=== PATIENT | female | born 1990 | race Caucasian/White ===

== ENCOUNTER 2018-07-13 06:43 | Inpatient (IN) | payer BC ==
[2018-07-13] MEDS ORDERED: TERBUTALINE 1 MG/ML VIAL SQ PRN (07:00)
[2018-07-13] MEDS ORDERED: LIDOCAINE 1% (PF) 10 MG/ML (30 ML SDV) SQ PRN (07:00)
[2018-07-13] MEDS ORDERED: OXYTOCIN 10 UNIT/ML 1 ML VIAL IM PRN (07:00)
[2018-07-13] MEDS ORDERED: CARBOPROST TROMETHAMINE 250 MCG/ML 1 ML AMP IM PRN (07:00)
[2018-07-13] MEDS ORDERED: METHYLERGONOVINE 0.2 MG/ML 1 ML AMP IM PRN (07:00)
[2018-07-13] MEDS: LACTATED RINGERS 1,000 ML IV SCH ×3 (07:05→15:08)
[2018-07-13] MEDS: OXYTOCIN 20 UNITS/1000 ML NS 1,000 ML IV SCH (07:13)
[2018-07-13 07:20] LABS: Basophils # (A) 0.1 k/uL (0-0.2); Basophils % (A) 0 %; Eosinophils # (A) 0.1 k/uL (0-0.7); Eosinophils % (A) 1 %; HGB 11.9 gm/dL (11.4-16.0); Lymphocytes % (A) 19 %; MCH 28.5 pg (25.0-35.0); MCHC 32.3 g/dL (31.0-37.0); MCV 88.1 fL (80.0-100.0); Mean Platelet Volume 6.3; Monocytes # (A) 0.6 k/uL (0-1.0); Monocytes % (A) 6 %; Neutrophils # (A) 7.8 k/uL (1.3-7.7); Neutrophils % (A) 73 %; Platelet Count 292 k/uL (150-450); RDW 15.3 % (11.5-15.5); WBC 10.8 k/uL (3.8-10.6)
[2018-07-13 07:25] VITALS: BMI 41.5
[2018-07-13] MEDS ORDERED: BUTORPHANOL 1 MG/ML 1 ML VIAL IV PRN (08:58)
--- NOTE | 2018-07-13 12:59 | P.HPOB ---
History of Present Illness H&P Date: 07/13/18 Chief Complaint: 39-2/7 weeks, oligohydramnios, induction The patient is a 27-year-old 1 para 0 admitted at 39 and 2/7 weeks as established by seven-week ultrasound. She is admitted with a diagnosis of oligohydramnios and an amniotic fluid index under 5 cm total. Her has otherwise been entirely uncomplicated. She has a history of a cardiac arrhythmia with seizures in the distant past but is not on any current medications and has had no problems during the . On admission, all signs reassuring. Group B strep status is negative. Obstetrical history: 1 para 0 with current statistics listed above. EDC of 07/18/2018 was established by seven-week ultrasound. Laboratory workup demonstrates a blood type of O+ with a negative antibody screen. Rubella status is nonimmune. Remainder of laboratory workup was within normal limits. Early Glucola as well as second trimester Glucola were within normal limits. Group B strep status is negative. Gynecologic history: Unremarkable with no history of any infections to include STDs. Review of Systems Review of systems is confined to history of present illness. Past Medical History Additional Past Medical History / Comment(s): PCOS History of Any Multi-Drug Resistant Organisms: None Reported Past Surgical History: Orthopedic Surgery Past Anesthesia/Blood Transfusion Reactions: No Reported Reaction Past Psychological History: No Psychological Hx Reported Smoking Status: Former smoker Past Alcohol Use History: None Reported Past Drug Use History: None Reported - Past Family History Mother Family Medical History: No Reported History Medications and Allergies Home Medications Medication Instructions Recorded Confirmed Type Pnv No.95/Ferrous Fum/Folic AC 1 each PO DAILY 07/13/18 07/13/18 History [ Multivitamin Tablet] Allergies Allergy/AdvReac Type Severity Reaction Status Date / Time No Known Allergies Allergy Verified 07/13/18 06:58 Exam Vital Signs Temp Pulse Resp BP Pulse Ox 07/13/18 07:17 97.4 F L 90 16 120/70 97 Intake and Output 07/12/18 07/13/18 07/13/18 22:59 06:59 14:59 Other: Weight 99.79 kg 99.79 kg In general, this is a well-developed, well-nourished white female in no acute distress. Her heart has a regular rhythm and rate without murmur. Her lungs are clear to auscultation bilaterally in all hawley. Her abdomen is gravid, nondistended, has normal active bowel sounds, is soft, nontender, and without any palpable masses aside from uterine fundus. Her extremities are without any cyanosis, clubbing, or significant edema and are nontender to palpation bilaterally. Digital cervical examination done and states her cervix to be 2+ centimeters dilated, 60% effaced, the vertex in presentation at -2 station. Artificial rupture of membranes is carried out demonstrating a minimal amount of clear fluid. Results Result Diagrams: 07/13/18 07:00 Abnormal Lab Results - Last 24 Hours (Table) 07/13/18 Range/Units 07:00 WBC 10.8 H (3.8-10.6) k/uL Neutrophils # 7.8 H (1.3-7.7) k/uL Assessment and Plan (1) Term Current Visit: Yes Status: Acute Code(s): Z34.80 - ENCOUNTER FOR SUPRVSN OF NORMAL , UNSP TRIMESTER SNOMED Code(s): 62813525 (2) Oligohydramnios Current Visit: Yes Status: Acute Code(s): O41.00X0 - OLIGOHYDRAMNIOS, UNSP TRIMESTER, NOT APPLICABLE OR UNSP SNOMED Code(s): 24254219 (3) Rubella non-immune status, antepartum Current Visit: Yes Status: Acute Code(s): O99.89 - OTH DISEASES AND CONDITIONS COMPL PREG/CHLDBRTH; Z28.3 - UNDERIMMUNIZATION STATUS SNOMED Code(s ): 506220189 Plan: Patient is admitted for induction of labor secondary to oligohydramnios. Pitocin augmentation has been started and artificial rupture of membranes carried out. She will have close maternal and surveillance and expectant management will be practiced. She is a good candidate for either IV or epidural analgesia, whichever she may choose.
[2018-07-13] MEDS ORDERED: ROPIVACAINE 100 MG, fentaNYL (PF) 200 MCG in SODIUM CHLORIDE 0.9% 76 ML EPIDURAL ONE (13:34)
[2018-07-13] MEDS ORDERED: ceFAZolin IN SWFI 2 GM/20 ML SYRINGE IVP ONE (18:39)
[2018-07-13] MEDS ORDERED: CITRIC ACID-SODIUM CITRATE 15 ML CUP PO ONE (18:39)
[2018-07-13] MEDS ORDERED: ONDANSETRON 4 MG/2 ML VIAL ONE (18:52)
[2018-07-13] MEDS ORDERED: OXYTOCIN 10 UNIT/ML 1 ML VIAL ONE (18:52)
[2018-07-13] MEDS ORDERED: KETOROLAC 30 MG/ML 1 ML VIAL ONE (18:52)
[2018-07-13] MEDS ORDERED: MORPHINE SULFATE (PF) 0.3 MG/0.3 ML SYR ONE (18:52)
[2018-07-13] MEDS ORDERED: ONDANSETRON 4 MG/2 ML VIAL IVP PRN (19:42)
[2018-07-13] MEDS ORDERED: SIMETHICONE 80 MG CHEWABLE PO PRN (19:42)
[2018-07-13] MEDS ORDERED: LANOLIN CREAM 5 GM TUBE TOPICAL PRN (19:42)
[2018-07-13] MEDS ORDERED: diphenhydrAMINE 50 MG/ML 1 ML VIAL IVP PRN ×2 (19:42)
[2018-07-13] MEDS ORDERED: diphenhydrAMINE 50 MG CAP PO PRN (19:42)
[2018-07-13] MEDS ORDERED: diphenhydrAMINE 25 MG CAP PO PRN (19:42)
[2018-07-13] MEDS ORDERED: NALOXONE 0.4 MG/ML 1 ML VIAL IV PRN (19:42)
[2018-07-13] MEDS ORDERED: HYDROcodone/APAP 7.5-325MG 1 EACH TAB PO PRN (19:42)
[2018-07-13] MEDS ORDERED: ZOLPIDEM 5 MG TAB PO PRN (19:42)
[2018-07-13] MEDS ORDERED: HYDROcodone/APAP 5-325MG 1 EACH TAB PO PRN (19:42)
[2018-07-13] MEDS ORDERED: METOCLOPRAMIDE 5 MG/ML 2 ML VIAL IVP PRN (19:42)
[2018-07-13] MEDS ORDERED: OXYTOCIN 20 UNITS/1000 ML NS 1,000 ML IV SCH (19:45)
--- NOTE | 2018-07-13 19:51 | P.OP ---
Date of Procedure: 07/13/18 Preoperative Diagnosis: 1. 39+ weeks intrauterine , oligohydramnios, induction #2. Arrest of dilation and descent #3. intolerance of labor remote from delivery Postoperative Diagnosis: Same Procedure(s) Performed: Primary low-transverse section Anesthesia: epidural Surgeon: Luis Ibrahim Search Lead #1: Oren Lopez Estimated Blood Loss (ml): 700 IV fluids (ml): 1,300 Urine output (ml): 200 Pathology: none sent Condition: stable Disposition: floor Operative Findings: Preoperatively, the patient had been admitted and induced for oligohydramnios. She made progress to approximately 4-5 cm and remained at that dilation for a number of hours. She additionally began to have repetitive deep and long decelerations leading to halting all Pitocin. Given both findings in the suspected finding of malposition, the decision was made to proceed to the operating room. She was delivered of a viable 7 lbs. 14 oz. baby boy with Apgars of 8 at 1 minute and 9 at 5 minutes delivered in the right occiput transverse position. The placenta was delivered manually, intact, and grossly normal with a grossly normal three-vessel cord. The uterus, tubes, and ovaries were entirely normal to inspection. Description of Procedure: The patient was prepped and draped in usual fashion after epidural anesthesia had been bolused by the anesthesiologist. A Pfannenstiel incision was made and extended into the abdominal cavity without difficulty. An Aniceto self- retaining wound retractor was placed. The bladder peritoneum was elevated, and incised, and reflected distally. A 2 cm incision was made in the transverse plane of the lower uterine segment to enter the uterus at which time clear fluid was again noted. The head was found deep in the pelvis and delivered up and through the incision as noted above. The nose and mouth were thoroughly suctioned. The remainder of the infant was delivered onto the field where the cord was doubly clamped, cut, and the infant passed resuscitative measures with weight and Apgars as noted above. A segment of cord was doubly clamped, cut, and set aside should cord gases become necessary. The placenta was delivered manually and intact as noted above. The uterus was exteriorized and the interior cavity of the uterus swept of any remaining placental or membranous fragments. The margins of the incision were grasped with Mcnulty clamps and the incision closed in 2 layers. The first layer was a running locking stitch of 0 chromic catgut from margin to margin followed by a running imbricating stitch of 0 chromic catgut from margin to margin. Hemostasis appeared to be excellent. The posterior cul-de-sac was suctioned with a guard. The uterus was replaced within the abdominal cavity and the gutters swept of any remaining blood, fluid, or clot. The incision was reexamined and found to be hemostatic. The Aniceto wound retractor was removed and the parietal peritoneum was loosely reapproximated. The layer of muscles examined and made hemostatic with the Bovie. The fascia was closed with 2 running stitches of 0 Vicryl proceeding from the lateral margins to the midpoint. The subcutaneous tissues were irrigated, made hemostatic with the Bovie, and reapproximated with a running stitch of 30 plain catgut. The skin was reapproximated with a running subcuticular stitch of 4-0 Vicryl from margin to margin. This was followed by half-inch Steri-Strips placed with Mastisol. Estimated blood loss for the entire case was approximate 700 mL. There were no complications. All sponge, instrument, and needle counts were correct. The patient tolerated the procedure well and proceeded to the recovery room in stable condition. Both mother and infant are resting comfortably in recovery.
[2018-07-13] MEDS: SENNOSIDES-DOCUSATE SODIUM 1 EACH TAB PO SCH (20:05)
[2018-07-14] MEDS: KETOROLAC 30 MG/ML 1 ML VIAL IVP PRN ×2 (03:45→10:00)
[2018-07-14] MEDS: LACTATED RINGERS 1,000 ML IV SCH ×2 (03:50→20:39)
[2018-07-14] MEDS: SENNOSIDES-DOCUSATE SODIUM 1 EACH TAB PO SCH ×2 (07:38→20:39)
[2018-07-14 07:46] LABS: Basophils % (A) 0 %; Eosinophils # (A) 0.1 k/uL (0-0.7); Eosinophils % (A) 1 %; HCT 30.5 % (34.0-46.0); Lymphocytes # (A) 1.6 k/uL (1.0-4.8); Lymphocytes % (A) 12 %; MCH 28.6 pg (25.0-35.0); MCHC 32.3 g/dL (31.0-37.0); MCV 88.5 fL (80.0-100.0); Mean Platelet Volume 6.5; Monocytes # (A) 0.8 k/uL (0-1.0); Monocytes % (A) 6 %; Neutrophils # (A) 11.1 k/uL (1.3-7.7); Neutrophils % (A) 81 %; Platelet Count 254 k/uL (150-450); RBC 3.45 m/uL (3.80-5.40); RDW 15.3 % (11.5-15.5); WBC 13.8 k/uL (3.8-10.6)
--- NOTE | 2018-07-14 07:49 | P.PN ---
Subjective Progress Note Date: 07/14/18 Slept well. Minimal pain. No complaints. Objective - Vital Signs Vital signs: Vital Signs Temp 98.9 F 07/14/18 04:00 Pulse 89 07/14/18 04:00 Resp 16 07/14/18 04:00 BP 117/59 07/14/18 04:00 Pulse Ox 97 07/14/18 04:00 Intake & Output 07/13/18 07/14/18 07/14/18 18:59 06:59 18:59 Intake Total 1000 2300 Output Total 1200 Balance 1000 1100 Weight 99.79 kg Intake: IV 1000 1300 Lactated Ringers 1,000 ml 1000 @ 125 mls/hr IV .Q8H JAZMIN Rx#:[id number] Intake, IV Titration 1000 Amount Oxytocin 20 Units/1000 ml 1000 Ns 1,000 ml @ Per Protocol IV .Q0M JAZMIN Rx#: [id number] Output: Urine 500 Estimated Blood Loss 700 Other: Voiding Method Indwelling Catheter # Voids 0 - Constitutional General appearance: Present: average body habitus, cooperative - EENT Eyes: Present: PERRLA ENT: Present: hearing grossly normal - Neck Neck: Present: normal ROM Thyroid: bilateral: normal size - Respiratory Respiratory: bilateral: CTA - Cardiovascular Rhythm: regular - Gastrointestinal General gastrointestinal: Present: normal bowel sounds - Integumentary Integumentary Comment(s): Incision clean and dry, intact. Steri-Strips applied. Minimal serous drainage. Well approximated Integumentary: Present: normal - Neurologic Neurologic: Present: CNII-XII intact - Musculoskeletal Musculoskeletal: Present: gait normal, strength equal bilaterally - Psychiatric Psychiatric: Present: A&O x's 3, appropriate affect, intact judgment & insight - Labs CBC & Chem 7: 07/13/18 07:00 Assessment and Plan Assessment: Doing well postoperative day #1 Plan: Advance diet and activity. Likely discharge home tomorrow. Time with Patient: Less than 30
[2018-07-14 07:55] LABS: HGB 9.9 gm/dL (11.4-16.0)
[2018-07-14] MEDS: IBUPROFEN 600 MG TAB PO PRN (16:11)
[2018-07-14] MEDS: ACETAMINOPHEN TAB 325 MG TAB PO PRN (19:25)
[2018-07-14] MEDS: OXYTOCIN 20 UNITS/1000 ML NS 1,000 ML IV SCH (20:39)
[2018-07-15] MEDS: IBUPROFEN 600 MG TAB PO PRN ×2 (00:01→15:38)
[2018-07-15] MEDS: LACTATED RINGERS 1,000 ML IV SCH (01:23)
[2018-07-15] MEDS: ACETAMINOPHEN TAB 325 MG TAB PO PRN (02:00)
[2018-07-15] MEDS: SENNOSIDES-DOCUSATE SODIUM 1 EACH TAB PO SCH (08:00)
--- NOTE | 2018-07-15 11:12 | P.DS ---
Providers Date of admission: 07/13/18 06:43 Expected date of discharge: 07/15/18 Attending physician: Luis Ibrahim - Discharge Diagnosis(es) (1) Term Current Visit: Yes Status: Acute (2) Oligohydramnios Current Visit: Yes Status: Acute (3) Rubella non-immune status, antepartum Current Visit: Yes Status: Acute Hospital Course: The patient is a 27-year-old 1 para 0 admitted at 39-2/7 weeks by good dating parameters. She is admitted for induction secondary to a diagnosis of oligohydramnios with an amniotic fluid index less than 5 cm. Her was otherwise uncomplicated and group B strep status was negative. On labor and delivery, she had Pitocin started followed by artificial rupture of membranes. She later had an epidural catheter placed for analgesia. She failed to make any significant progress and ultimately progressed only to approximate 5 cm of dilation. She additionally began to have significant and prolonged decelerations demonstrating intolerance of labor and requiring stopping Pitocin augmentation. Given her remoteness from delivery as well as a suspected cephalopelvic disproportion, we proceeded to the operating room where she was delivered by primary low transverse section of a viable 7 lbs. 14 oz. boy with Apgars of 8 at 1 minute and 9 at 5 minutes. Her postoperative course was unremarkable with vital signs remaining stable and her temperature was afebrile throughout. She was deemed stable for discharge on postoperative day #2 was discharged home to follow-up in the office in 2 weeks for an incision check and 6 weeks routinely. Discharge instructions included calling for any significantly increased bleeding or foul-smelling lochia, significantly increased fever or abdominal pain, perineal complaints, breast complaints, incisional complaints, or anything else that concerned her. She was additionally instructed to have nothing in the vagina for at least 6 weeks time to include intercourse and to abstain from any heavy lifting over the same period of time. She was lastly instructed to do no driving until off of all pain medications or 2 weeks' time, whichever came first. She understood her instructions and agrees to follow up as noted above. Discharge medications included [id number] analgesic pain medications as well as continued vitamins as she has opted to breast-feed. She otherwise was given a prescription for Tylenol 3, 1-2 by mouth every 6 hours when necessary pain, #20 dispensed with no refills. Maternal blood type is O+ and rubella status is nonimmune. She therefore was treated see the MMR vaccination prior to discharge. Discharge hemoglobin and hematocrit were 9.9 and 30.5 respectively. Procedures: #1. Pitocin induction #2. Artificial rupture of membranes #3. Epidural analgesia #4. Primary low-transverse section Patient Condition at Discharge: Good Plan - Discharge Summary New Discharge Prescriptions: No Action Pnv No.95/Ferrous Fum/Folic AC [ Multivitamin Tablet] 1 each PO DAILY Discharge Medication List Pnv No.95/Ferrous Fum/Folic AC [ Multivitamin Tablet] 1 each PO DAILY [History] Follow up Appointment(s)/Referral(s): Luis Ibrahim MD [STAFF PHYSICIAN] - 2 Weeks Discharge Disposition: HOME SELF-CARE
[2018-07-15 11:39] VITALS: RESP 18
[2018-07-15] MEDS ORDERED: MEASLES-MUMPS-RUBELLA VACC/PF 12,500 UNIT/0.5 ML VIAL SQ ONE (15:25)
[2018-07-15 16:59] VITALS: BP 113/72; PULSE 101; TEMP 98.3
== END 2018-07-15 17:07 | disposition home or self-care (01) | DRG 766 ==
LOC: 4FBP 06:43
PROVIDERS: ADMIT Obstetrics & Gynecology; ATTEND Obstetrics & Gynecology
PROC: 3E033VJ Introduction of Other Hormone into Peripheral Vein, Percutaneous Approach (ICD-10-PCS; 2018-07-13)
PROC: 10907ZC Drainage of Amniotic Fluid, Therapeutic from Products of Conception, Via Natural or Artificial Opening (ICD-10-PCS; 2018-07-13)
PROC: 00HU33Z Insertion of Infusion Device into Spinal Canal, Percutaneous Approach (ICD-10-PCS; 2018-07-13)
PROC: 3E0R3BZ Introduction of Anesthetic Agent into Spinal Canal, Percutaneous Approach (ICD-10-PCS; 2018-07-13)
PROC: 10D00Z1 Extraction of Products of Conception, Low, Open Approach (ICD-10-PCS; principal; 2018-07-13 19:00)
DX: O41.03X0 Oligohydramnios, third trimester, not applicable or unspecified (principal); O99.52 Diseases of the respiratory system complicating childbirth; O62.1 Secondary uterine inertia; O76 Abnormality in fetal heart rate and rhythm complicating labor and delivery; O32.4XX0 Maternal care for high head at term, not applicable or unspecified; J45.909 Unspecified asthma, uncomplicated; O75.89 Other specified complications of labor and delivery; E28.2 Polycystic ovarian syndrome; Z37.0 Single live birth; Z3A.39 39 weeks gestation of pregnancy; Z87.891 Personal history of nicotine dependence; Z28.3 Underimmunization status
CPT/HCPCS: 85025; 86850; 86900; 86901; 90707

== ENCOUNTER 2019-07-12 20:18 | Emergency (ER) | payer BC ==
[2019-07-12] MEDS ORDERED: DEXAMETHASONE SOD PHOSPHATE 10 MG/ML 1 ML VIAL IV STA (20:42)
[2019-07-12] MEDS ORDERED: cefTRIAXone IN SWFI 1,000 MG/10 ML SYRINGE IVP STA (20:42)
[2019-07-12] MEDS ORDERED: KETOROLAC 30 MG/ML 1 ML VIAL IVP STA (20:46)
[2019-07-12] MEDS ORDERED: SODIUM CHLORIDE 0.9% 1,000 ML IV ONE (20:46)
[2019-07-12 21:04] LABS: Basophils # (A) 0.1 k/uL (0-0.2); Basophils % (A) 1 %; Eosinophils # (A) 0.4 k/uL (0-0.7); Eosinophils % (A) 3 %; HCT 41.4 % (34.0-46.0); HGB 13.9 gm/dL (11.4-16.0); Lymphocytes # (A) 2.1 k/uL (1.0-4.8); Lymphocytes % (A) 12 %; MCH 29.1 pg (25.0-35.0); MCHC 33.6 g/dL (31.0-37.0); MCV 86.6 fL (80.0-100.0); Mean Platelet Volume 6.6; Monocytes # (A) 0.6 k/uL (0-1.0); Monocytes % (A) 3 %; Neutrophils # (A) 14.1 k/uL (1.3-7.7); Neutrophils % (A) 81 %; Platelet Count 388 k/uL (150-450); RBC 4.78 m/uL (3.80-5.40); WBC 17.3 k/uL (3.8-10.6)
[2019-07-12 21:14] LABS: ALT 19 U/L (9-52); AST 17 U/L (14-36); African American GFR (CKD) >90 (>60 ml/min/1.73 sqM); Albumin 4.3 g/dL (3.5-5.0); Alkaline Phosphatase 59 U/L (38-126); Anion Gap 8 mmol/L; Blood Urea Nitrogen 12 mg/dL (7-17); Calcium 10.1 mg/dL (8.4-10.2); Carbon Dioxide 27 mmol/L (22-30); Chloride 102 mmol/L (98-107); Glucose 94 mg/dL (74-99); Potassium 4.4 mmol/L (3.5-5.1); Sodium 137 mmol/L (137-145); Total Bilirubin 0.3 mg/dL (0.2-1.3); Total Protein 7.1 g/dL (6.3-8.2)
--- NOTE | 2019-07-12 21:39 | ED ---
ENT HPI - General Chief complaint: ENT Stated complaint: Throat Pain Time Seen by Provider: 07/12/19 20:34 Source: patient, RN notes reviewed Mode of arrival: ambulatory Limitations: no limitations - History of Present Illness Initial comments: 28-year-old female presents emergency Department chief complaint sore throat. Patient did develop of last couple days was seen at urgent care and states that she was diagnosed with strep pharyngitis. Patient states that it's worse and localized to the right side of swelling of her tonsil. She did state that she had a history of recurrent strep infections, tonsillitis. Patient states that she also had mono when she was younger. Patient denies any relief with antibiotics but states that she's taken 2 doses. Patient has taken Tylenol no recent Motrin. Patient has no complaints of abdominal pain. Patient is complaining she feels achy. Patient denies any chance . - Related Data Home Medications Medication Instructions Recorded Confirmed Pnv No.95/Ferrous Fum/Folic AC 1 each PO DAILY 07/13/18 07/13/18 [ Multivitamin Tablet] Allergies Allergy/AdvReac Type Severity Reaction Status Date / Time No Known Allergies Allergy Verified 07/12/19 20:33 Review of Systems ROS Statement: Those systems with pertinent positive or pertinent negative responses have been documented in the HPI. ROS Other: All systems not noted in ROS Statement are negative. Past Medical History Additional Past Medical History / Comment(s): PCOS History of Any Multi-Drug Resistant Organisms: ESBL Date of last positivie culture/infection: 08/18/18 MDRO Source:: ESBL URINE Past Surgical History: Orthopedic Surgery Past Anesthesia/Blood Transfusion Reactions: No Reported Reaction Past Psychological History: No Psychological Hx Reported Smoking Status: Former smoker Past Alcohol Use History: None Reported Past Drug Use History: None Reported - Past Family History Mother Family Medical History: No Reported History General Exam Limitations: no limitations General appearance: alert, in no apparent distress Head exam: Present: atraumatic, normocephalic, normal inspection Eye exam: Present: normal appearance, PERRL, EOMI. Absent: scleral icterus, conjunctival injection, periorbital swelling ENT exam: Present: mucous membranes moist, TM's normal bilaterally. Absent: normal oropharynx (Edematous erythematous tonsils and exudates on the right compared to the left) Neck exam: Present: normal inspection, full ROM, lymphadenopathy (Right anterior cervical). Absent: tenderness, meningismus Respiratory exam: Present: normal lung sounds bilaterally. Absent: respiratory distress, wheezes, rales, rhonchi, stridor Cardiovascular Exam: Present: normal rhythm, tachycardia, normal heart sounds. Absent: systolic murmur, diastolic murmur, rubs, gallop, clicks GI/Abdominal exam: Present: soft, normal bowel sounds. Absent: distended, tenderness, guarding, rebound, rigid Course Vital Signs 07/12/19 20:32 Temperature 101.7 F H Pulse Rate 104 H Respiratory 20 Rate Blood Pressure 134/88 O2 Sat by Pulse 96 Oximetry Medical Decision Making - Medical Decision Making 28-year-old female presents emergency from for sore throat, swallowing. Patient had CT which shows asymmetric right tonsillar swelling edema without well- defined fluid collection. Patient's strep is negative, heterophile negative. Patient can finish antibiotics and will follow-up with ENT at her scheduled ashley ointment. - Lab Data Result diagrams: 07/12/19 20:50 07/12/19 20:50 Lab Results 07/12/19 07/12/19 07/12/19 Range/Units 20:50 20:50 20:50 WBC 17.3 H (3.8-10.6) k/uL RBC 4.78 (3.80-5.40) m/uL Hgb 13.9 (11.4-16.0) gm/dL Hct 41.4 (34.0-46.0) % MCV 86.6 (80.0-100.0) fL MCH 29.1 (25.0-35.0) pg MCHC 33.6 (31.0-37.0) g/dL RDW 14.0 (11.5-15.5) % Plt Count 388 (150-450) k/uL Neutrophils % 81 % Lymphocytes % 12 % Monocytes % 3 % Eosinophils % 3 % Basophils % 1 % Neutrophils # 14.1 H (1.3-7.7) k/uL Lymphocytes # 2.1 (1.0-4.8) k/uL Monocytes # 0.6 (0-1.0) k/uL Eosinophils # 0.4 (0-0.7) k/uL Basophils # 0.1 (0-0.2) k/uL Sodium 137 (137-145) mmol/L Potassium 4.4 (3.5-5.1) mmol/L Chloride 102 (98-107) mmol/L Carbon Dioxide 27 (22-30) mmol/L Anion Gap 8 mmol/L BUN 12 (7-17) mg/dL Creatinine 0.66 (0.52-1.04) mg/dL Est GFR (CKD-EPI)AfAm >90 (>60 ml/min/1.73 sqM) Est GFR (CKD-EPI)NonAf >90 (>60 ml/min/1.73 sqM) Glucose 94 (74-99) mg/dL Calcium 10.1 (8.4-10.2) mg/dL Total Bilirubin 0.3 (0.2-1.3) mg/dL AST 17 (14-36) U/L ALT 19 (9-52) U/L Alkaline Phosphatase 59 (38-126) U/L Total Protein 7.1 (6.3-8.2) g/dL Albumin 4.3 (3.5-5.0) g/dL Heterophile Antibody Negative (Negative) Group A Strep Rapid (Negative) 07/12/19 Range/Units 20:50 WBC (3.8-10.6) k/uL RBC (3.80-5.40) m/uL Hgb (11.4-16.0) gm/dL Hct (34.0-46.0) % MCV (80.0-100.0) fL MCH (25.0-35.0) pg MCHC (31.0-37.0) g/dL RDW (11.5-15.5) % Plt Count (150-450) k/uL Neutrophils % % Lymphocytes % % Monocytes % % Eosinophils % % Basophils % % Neutrophils # (1.3-7.7) k/uL Lymphocytes # (1.0-4.8) k/uL Monocytes # (0-1.0) k/uL Eosinophils # (0-0.7) k/uL Basophils # (0-0.2) k/uL Sodium (137-145) mmol/L Potassium (3.5-5.1) mmol/L Chloride (98-107) mmol/L Carbon Dioxide (22-30) mmol/L Anion Gap mmol/L BUN (7-17) mg/dL Creatinine (0.52-1.04) mg/dL Est GFR (CKD-EPI)AfAm (>60 ml/min/1.73 sqM) Est GFR (CKD-EPI)NonAf (>60 ml/min/1.73 sqM) Glucose (74-99) mg/dL Calcium (8.4-10.2) mg/dL Total Bilirubin (0.2-1.3) mg/dL AST (14-36) U/L ALT (9-52) U/L Alkaline Phosphatase (38-126) U/L Total Protein (6.3-8.2) g/dL Albumin (3.5-5.0) g/dL Heterophile Antibody (Negative) Group A Strep Rapid Negative (Negative) Disposition Clinical Impression: Acute tonsillitis, Pharyngitis Disposition: HOME SELF-CARE Condition: Stable Instructions (If sedation given, give patient instructions): Tonsillitis (ED) Additional Instructions: Please return to the Emergency Department if symptoms worsen or any other concerns. Is patient prescribed a controlled substance at d/c from ED?: No Referrals: Sukhwinder Fuentes DO [Primary Care Provider] - 1-2 days Time of Disposition: 22:03
--- NOTE | 2019-07-12 21:55 | CT ---
History: ITS.REASON CT Reason: Rule out right peritonsillar abscess Exam: CT NECK With Contrast Technique more: CTDI is 11.1 mGy and DLP is 424.4 mGy-cm. Technique more: This CT exam was performed using one or more of the following dose reduction techniques: automated exposure control, adjustment of the mA and/or kV according to patient size, and/or use of iterative reconstruction technique. Comparison: None available FINDINGS: Visualized upper lungs are clear. No airway narrowing. Epiglottis and aryepiglottic folds appear within limits. Asymmetric right tonsillar swelling, edema without focal well-defined peripheral enhancing fluid collection at this time. Major vascular structures appear within limits. Undulating internal carotid arteries. Mildly prominent right jugulodigastric node. Parotid, submandibular and thyroid glands appear within limits. Visualized paranasal sinuses and mastoids are clear. IMPRESSION: Asymmetric right tonsillar swelling, edema without focal well-defined peripheral enhancing fluid collection at this time.
[2019-07-12 22:21] VITALS: BP 136/80; PULSE 92; RESP 18; TEMP 100
== END 2019-07-12 22:20 | disposition home or self-care (01) ==
LOC: EC 20:18
DX: J03.90 Acute tonsillitis, unspecified (principal); Z87.891 Personal history of nicotine dependence; Z79.899 Other long term (current) drug therapy
CPT/HCPCS: 36415; 80053; 85025; 86308; 87081; 87430; 70491; 96374; 96375 ×2; 96361; 99283; J1100; J0696; J1885; Q9967

== ENCOUNTER → 2020-04-19 | Outpatient (CLI) | payer BC, OTHER | END | disposition home or self-care (01) | LOC: LABWHC1 13:12 | PROVIDERS: ATTEND Obstetrics & Gynecology | DX: Z11.59 Encounter for screening for other viral diseases (principal) ==

== ENCOUNTER 2020-04-22 10:01 | Inpatient (IN) | payer BC, OTHER ==
[2020-04-19 11:54] VITALS: BMI 43.2
[2020-04-22] MEDS ORDERED: CITRIC ACID-SODIUM CITRATE 15 ML CUP PO ONE (10:21)
[2020-04-22] MEDS ORDERED: LACTATED RINGERS 1,000 ML IV ONE (10:21)
[2020-04-22 11:04] LABS: Basophils % (A) 0 %; Eosinophils # (A) 0.1 k/uL (0-0.7); Eosinophils % (A) 1 %; HCT 34.8 % (34.0-46.0); HGB 11.6 gm/dL (11.4-16.0); Hypochromasia Slight; Lymphocytes # (A) 1.7 k/uL (1.0-4.8); Lymphocytes % (A) 18 %; MCH 27.3 pg (25.0-35.0); MCHC 33.2 g/dL (31.0-37.0); MCV 82.2 fL (80.0-100.0); Mean Platelet Volume 6.8; Monocytes # (A) 0.6 k/uL (0-1.0); Monocytes % (A) 7 %; Neutrophils # (A) 6.7 k/uL (1.3-7.7); Neutrophils % (A) 73 %; Platelet Count 318 k/uL (150-450); RBC 4.24 m/uL (3.80-5.40); RDW 14.8 % (11.5-15.5); WBC 9.3 k/uL (3.8-10.6)
--- NOTE | 2020-04-22 11:44 | P.HPOB ---
History of Present Illness H&P Date: 04/22/20 Chief Complaint: 39 and one sevenths weeks, previous section, undesired fertility The patient is a 29-year-old 2 para 1001 was admitted to the hospital at 39 and one sevenths weeks as established by last menstrual period and confirmed by 19 week ultrasound. She is admitted having had a previous for repeat low transverse section to include intraoperative tubal occlusion with Filshie clips. Her has been entirely uncomplicated and group B strep status is negative. She does understand the permanent nature of tubal ligation and has signed consent in advance in the office. Obstetrical history: 2 para 1001 with 1 term section done for arrest of dilation and descent. EDC of 04/28/2020 was established by last menstrual period. And confirmed by 19 week ultrasound. statistics are listed in history present illness. Laboratory workup demonstrates a blood type of O+ with a negative antibody screen. Rubella status is immune. The remainder of the laboratory workup was within normal limits. Early Glucola and second trimester Glucola were normal. Group B strep status is negative. Gynecologic history: Unremarkable with no history of any infections to include STDs. Review of Systems Review of systems is confined to history of present illness. Past Medical History Additional Past Medical History / Comment(s): PCOS History of Any Multi-Drug Resistant Organisms: None Reported Date of last positivie culture/infection: 08/18/18 MDRO Source:: ESBL URINE Past Surgical History: Section, Orthopedic Surgery Additional Past Surgical History / Comment(s): GANGLION CYST RT WRIST REMOVED. RT KNEE SCOPE Past Anesthesia/Blood Transfusion Reactions: No Reported Reaction Past Psychological History: No Psychological Hx Reported Smoking Status: Current some day smoker Past Alcohol Use History: None Reported Additional Past Alcohol Use History / Comment(s): 1 cigarrette on occassion per patient Past Drug Use History: None Reported - Past Family History Mother Family Medical History: No Reported History Father Additional Family Medical History / Comment(s): hx of aortic valve tear - cause of Medications and Allergies Home Medications Medication Instructions Recorded Confirmed Type Pnv No.95/Ferrous Fum/Folic AC 1 each PO DAILY 07/13/18 04/22/20 History [ Multivitamin Tablet] Ferrous Sulfate [Feosol] 325 mg PO DAILY 04/19/20 04/22/20 History Allergies Allergy/AdvReac Type Severity Reaction Status Date / Time alcohol Allergy Itching Verified 04/22/20 10:20 [From Mastisol Adhesive] gum mastic Allergy Itching Verified 04/22/20 10:20 [From Mastisol Adhesive] methyl salicylate Allergy Itching Verified 04/22/20 10:20 [From Mastisol Adhesive] storax Allergy Itching Verified 04/22/20 10:20 [From Mastisol Adhesive] Exam Vital Signs Temp Pulse Resp BP 04/22/20 10:18 98.0 F 90 18 112/67 Intake and Output 04/21/20 04/22/20 04/22/20 22:59 06:59 14:59 Other: Weight 103.873 kg In general, this is a well-developed, mildly obese white female in no acute distress. Her heart has a regular rhythm and rate without murmur. Her lungs are clear to auscultation bilaterally in all hawley. Her abdomen is gravid, non distended, has normal active bowel sounds, soft, nontender, and without any palpable masses aside from uterine fundus. Her extremities are without any cyanosis, clubbing, or edema and are nontender to palpation bilaterally. Digital cervical examination is deferred. Results Result Diagrams: 04/22/20 10:20 Assessment and Plan (1) Family planning Current Visit: Yes Status: Acute Code(s): Z30.09 - ENCOUNTER FOR OTH GENERAL CNSL AND ADVICE ON CONTRACEPTION SNOMED Code(s): 593155773 (2) Previous section Current Visit: Yes Status: Acute Code(s): Z98.891 - HISTORY OF UTERINE SCAR FROM PREVIOUS SURGERY SNOMED Code(s): 530677538 Plan: The patient is admitted for repeat low transverse section with intraoperative bilateral tubal occlusion using Filshie clips. The risks and complications of the procedure been thoroughly discussed and the patient has understood and agreed to proceed.
[2020-04-22] MEDS: LACTATED RINGERS 1,000 ML IV SCH ×4 (13:47→22:03)
[2020-04-22] MEDS ORDERED: OXYTOCIN 10 UNIT/ML 1 ML VIAL ONE (15:53)
[2020-04-22] MEDS ORDERED: SODIUM CHLORIDE 0.9% 100 ML BAG ONE (15:53)
[2020-04-22] MEDS ORDERED: KETOROLAC 30 MG/ML 1 ML VIAL ONE (15:53)
[2020-04-22] MEDS ORDERED: ceFAZolin 1,000 MG VIAL ONE (15:53)
[2020-04-22] MEDS ORDERED: MORPHINE SULFATE (PF) 0.3 MG/0.3 ML SYR ONE (15:53)
[2020-04-22] MEDS ORDERED: NALBUPHINE 10 MG/ML (1 ML AMP) ONE (15:53)
[2020-04-22] MEDS ORDERED: ONDANSETRON 4 MG/2 ML VIAL ONE (15:53)
[2020-04-22] MEDS ORDERED: METOCLOPRAMIDE 5 MG/ML 2 ML VIAL IVP PRN (16:52)
[2020-04-22] MEDS ORDERED: NALOXONE 0.4 MG/ML 1 ML VIAL IV PRN ×2 (16:52→18:21)
[2020-04-22] MEDS ORDERED: SIMETHICONE 80 MG CHEWABLE PO PRN (16:52)
[2020-04-22] MEDS ORDERED: HYDROcodone/APAP 5-325MG 1 EACH TAB PO PRN (16:52)
[2020-04-22] MEDS ORDERED: diphenhydrAMINE 50 MG/ML 1 ML VIAL IVP PRN ×3 (16:52→18:21)
[2020-04-22] MEDS ORDERED: ZOLPIDEM 5 MG TAB PO PRN (16:52)
[2020-04-22] MEDS ORDERED: diphenhydrAMINE 50 MG CAP PO PRN (16:52)
[2020-04-22] MEDS ORDERED: KETOROLAC 30 MG/ML 1 ML VIAL IVP PRN (16:52)
[2020-04-22] MEDS ORDERED: ONDANSETRON 4 MG/2 ML VIAL IVP PRN ×2 (16:52→18:21)
[2020-04-22] MEDS ORDERED: ACETAMINOPHEN TAB 325 MG TAB PO PRN (16:52)
[2020-04-22] MEDS ORDERED: LANOLIN CREAM 5 GM TUBE TOPICAL PRN (16:52)
[2020-04-22] MEDS ORDERED: diphenhydrAMINE 25 MG CAP PO PRN (16:52)
[2020-04-22] MEDS ORDERED: OXYTOCIN 20 UNITS/1000 ML NS 1,000 ML IV SCH (17:00)
--- NOTE | 2020-04-22 17:01 | P.OP ---
Date of Procedure: 04/22/20 Preoperative Diagnosis: #1. 39 and one sevenths weeks intrauterine , previous section #2. Undesired fertility Postoperative Diagnosis: Same Procedure(s) Performed: #1. Repeat low transverse section #2. Intraoperative bilateral tubal occlusion with Filshie clips Anesthesia: spinal Surgeon: Luis Ibrahim Surgical Resident #1: Jia Coles Estimated Blood Loss (ml): 600 IV fluids (ml): 900 Urine output (ml): 250 Pathology: none sent Condition: stable Disposition: floor Operative Findings: Intraoperatively, the patient was noted to have a fairly significant amount of scarring at the level of fascia and rectus muscles. Additionally, the bladder was scarred relatively high on the lower uterine segment. She was delivered of a viable 8 lbs. 3 oz. baby boy with Apgars of 8 at 1 minute and 8 at 5 minutes delivered in the occiput transverse position. The placenta was delivered spontaneously, intact, and grossly normal with a grossly normal three-vessel cord. The uterus, tubes, and ovaries were otherwise entirely normal to inspection. A Filshie clip was placed across the isthmic portion of both tubes approximately 3 cm from the cornu. Description of Procedure: The patient was prepped and draped in usual fashion after spinal anesthesia was administered by the anesthesiologist. A Pfannenstiel incision was made near a previous incision and extended into the abdominal cavity with only a moderate amount of difficulty encountered at the level of the fascia and rectus muscles which were densely scarred together. Once the abdomen was entered. The bladder peritoneum was elevated, incised, and reflected distally. A 2 cm incision was made in the transverse plane of the lower uterine segment to enter the uterus at which time clear fluid was noted. The head was delivered up and through the incision where the nose and mouth were thoroughly suctioned. Remainder of the was delivered onto the field and the cord was doubly clamped, cut, and the passed for resuscitative measures with weight and Apgars as noted above. The placenta was then delivered spontaneously and intact as noted above using uterine massage and traction. The uterus was exteriorized and the interior cavity of the uterus swept of any remaining placental or membranous fragments. The margins of the incision were grasped with Mcnulty clamps and the was noted that the right angle had had an extension towards the cervix of perhaps 3 cm. The incision was then closed in a running locking stitch of 0 chromic catgut from margin to margin. There was some ongoing bleeding noted at the left angle which was made hemostatic with 2 [id number] stitches of 0 chromic catgut. The patient was then again questioned as to desire for tubal ligation to which she consented. As result, a Filshie clip was placed across the isthmic portion of each tube approximately 3 cm from the cornu on each side where it was firmly affixed. The posterior cul-de-sac was then suctioned using a guard as well as a laparotomy sponge. The uterus was replaced within the abdominal cavity and the gutters swept of any remaining blood, fluid, or clot. The incision was reexamined and found to be hemostatic. The parietal peritoneum was loosely reapproximated in the layer of muscles examined and made hemostatic with the Bovie. The fascia was closed with 2 running stitches of 0 Vicryl proceeding from the lateral margins to the midpoint. The subcutaneous tissues were irrigated, made hemostatic with the Bovie, and reapproximated with a running stitch of 30 plain catgut. The skin was reapproximated with a running subcuticular stitch of 4-0 Vicryl proceeding from margin to margin followed by half-inch Steri-Strips placed without Mastisol as the patient had a prior reaction. All sponge, instrument, and needle counts were correct. There were no complications. Estimated blood loss for the case was approximately 600 mL. The patient tolerated the procedure well and proceeded to the recovery room in stable condition. Both mother and are resting comfortably in recovery of the has been taken to the special care nursery for observation secondary to some minor difficulties with breathing.
[2020-04-22] MEDS ORDERED: HYDROmorphone 0.5 MG/0.5 ML SYRINGE IVP PRN (18:21)
[2020-04-22] MEDS: SENNOSIDES-DOCUSATE SODIUM 1 EACH TAB PO SCH (20:50)
[2020-04-23 06:00] LABS: Basophils % (A) 0 %; Eosinophils # (A) 0.1 k/uL (0-0.7); Eosinophils % (A) 1 %; HCT 34.7 % (34.0-46.0); Hypochromasia Slight; Lymphocytes # (A) 1.6 k/uL (1.0-4.8); Lymphocytes % (A) 13 %; MCH 26.7 pg (25.0-35.0); MCHC 31.7 g/dL (31.0-37.0); MCV 84.1 fL (80.0-100.0); Mean Platelet Volume 6.7; Monocytes # (A) 0.6 k/uL (0-1.0); Monocytes % (A) 5 %; Neutrophils # (A) 9.9 k/uL (1.3-7.7); Neutrophils % (A) 81 %; Platelet Count 308 k/uL (150-450); RBC 4.12 m/uL (3.80-5.40); RDW 14.9 % (11.5-15.5); WBC 12.3 k/uL (3.8-10.6)
--- NOTE | 2020-04-23 06:54 | P.PN ---
Progress Note - Text Progress Note Date: 04/23/20 Postoperative day 1 status post section under spinal anesthesia, and intrathecal morphine given for postoperative analgesia, patient doing well, there is no anesthesia related complications, Patient had no headache, vital signs stable , Assessment and plan= postop day 1 status post , doing well there is no anesthesia related complication.
--- NOTE | 2020-04-23 08:35 | P.PNOBGPC ---
Subjective - Subjective Patient reports: Reports appetite normal, Reports voiding normally, Reports pain well controlled, Reports ambulating normally : doing well, in NICU (Having continued reading problems requiring O2 supplementation) Objective - Vital Signs Latest vital signs: Vital Signs Temp Pulse Resp BP Pulse Ox 04/23/20 05:00 16 04/23/20 04:00 98.0 F 69 16 113/71 96 04/23/20 03:00 16 04/23/20 00:59 16 04/23/20 00:00 97.6 F 73 16 120/73 98 04/22/20 23:00 16 04/22/20 21:21 16 04/22/20 20:00 97.7 F 80 16 110/69 98 04/22/20 19:21 16 04/22/20 18:53 72 16 93/53 04/22/20 18:22 76 16 103/56 04/22/20 17:51 80 16 107/74 98 04/22/20 17:36 76 17 114/73 97 04/22/20 17:21 72 17 111/74 98 04/22/20 17:05 70 16 99/56 97 04/22/20 16:50 98.4 F 70 16 104/66 98 04/22/20 10:18 98.0 F 90 18 112/67 Intake and Output 04/22/20 04/23/20 04/23/20 22:59 06:59 14:59 Intake Total 800 Output Total 350 1120 300 Balance -350 -320 -300 Intake: IV 800 Output: Urine 350 1100 300 Uretheral ([place]) 1100 Emesis 20 Other: Voiding Method Indwelling Catheter - Exam Abdomen: Present: normal appearance, soft. Absent: distention, tenderness Incision: Present: normal, dry, intact Uterus: Present: normal, firm - Labs Labs: Abnormal Lab Results - Last 24 Hours (Table) 04/23/20 Range/Units 05:46 WBC 12.3 H (3.8-10.6) k/uL Hgb 11.0 L (11.4-16.0) gm/dL Neutrophils # 9.9 H (1.3-7.7) k/uL Assessment and Plan (1) Family planning Current Visit: Yes Status: Acute Code(s): Z30.09 - ENCOUNTER FOR OTH GENERAL CNSL AND ADVICE ON CONTRACEPTION SNOMED Code(s): 014318850 (2) Previous section Current Visit: Yes Status: Acute Code(s): Z98.891 - HISTORY OF UTERINE SCAR FROM PREVIOUS SURGERY SNOMED Code(s): 638018699 (3) S/P section Current Visit: Yes Status: Acute Code(s): Z98.891 - HISTORY OF UTERINE SCAR FROM PREVIOUS SURGERY SNOMED Code(s): 766459616 Plan: Continue routine postoperative care. The remains and special care nursery of and is slowly weaning from oxygen supplementation. I have encouraged the patient ambulating the hallways routinely. She is otherwise performing all activities of daily living and pain is well controlled. Possible discharge home tomorrow morning pending any issues with the baby.
[2020-04-23] MEDS: SENNOSIDES-DOCUSATE SODIUM 1 EACH TAB PO SCH ×2 (08:59→19:50)
[2020-04-23] MEDS: HYDROcodone/APAP 7.5-325MG 1 EACH TAB PO PRN (16:58)
[2020-04-23] MEDS: IBUPROFEN 600 MG TAB PO PRN (19:50)
[2020-04-24] MEDS: HYDROcodone/APAP 7.5-325MG 1 EACH TAB PO PRN ×3 (00:28→23:34)
[2020-04-24] MEDS: IBUPROFEN 600 MG TAB PO PRN ×3 (04:08→19:51)
--- NOTE | 2020-04-24 08:57 | P.PNOBGPC ---
Subjective - Subjective Patient reports: Reports appetite normal, Reports voiding normally, Reports pain well controlled, Reports ambulating normally : doing well, in NICU (The remains in the special care nursery requiring oxygenation, weaning will be attempted today.) Objective - Vital Signs Latest vital signs: Vital Signs Temp Pulse Resp BP Pulse Ox 04/24/20 08:00 97.8 F 71 16 101/61 100 04/24/20 07:00 16 04/24/20 04:26 18 98 04/24/20 00:00 97.7 F 79 16 108/67 96 04/23/20 23:00 18 96 04/23/20 20:55 18 96 04/23/20 19:00 18 95 04/23/20 16:30 98.2 F 79 18 101/62 89 L 04/23/20 15:00 18 04/23/20 13:00 18 04/23/20 12:00 98.2 F 82 18 104/70 99 04/23/20 09:00 98.2 F 79 18 97/71 97 Intake and Output 04/23/20 04/24/20 04/24/20 22:59 06:59 14:59 Intake Total 100 Balance 100 Intake: Oral 100 Other: # Voids 1 2 - Exam Extremities: Present: normal Abdomen: Present: normal appearance, soft. Absent: distention, tenderness Incision: Present: normal, dry, intact Uterus: Present: normal, firm (The uterine fundus is, again nontender just below the umbilicus.) Assessment and Plan (1) Family planning Current Visit: Yes Status: Acute Code(s): Z30.09 - ENCOUNTER FOR [facility] GENERAL CNSL AND ADVICE ON CONTRACEPTION SNOMED Code(s): 238784341 (2) Previous section Current Visit: Yes Status: Acute Code(s): Z98.891 - HISTORY OF UTERINE SCAR FROM PREVIOUS SURGERY SNOMED Code(s): 101897752 (3) S/P section Current Visit: Yes Status: Acute Code(s): Z98.891 - HISTORY OF UTERINE SCAR FROM PREVIOUS SURGERY SNOMED Code(s): 907237925 Plan: Continue routine postoperative and care. The patient's length of stay will be dependent upon when infant is released or she will be discharged on postoperative day #4, whichever comes first. Continue routine ambulation
[2020-04-24] MEDS: SENNOSIDES-DOCUSATE SODIUM 1 EACH TAB PO SCH ×2 (11:25→19:51)
[2020-04-25] MEDS: HYDROcodone/APAP 7.5-325MG 1 EACH TAB PO PRN ×3 (07:29→22:56)
[2020-04-25] MEDS: SENNOSIDES-DOCUSATE SODIUM 1 EACH TAB PO SCH ×2 (07:30→19:43)
[2020-04-25] MEDS: IBUPROFEN 600 MG TAB PO PRN ×2 (14:11→19:44)
--- NOTE | 2020-04-25 17:29 | P.DS ---
Providers Date of admission: 04/22/20 10:01 Expected date of discharge: 04/25/20 Attending physician: Luis Ibrahim Primary care physician: Stated None - Discharge Diagnosis(es) (1) Family planning Current Visit: Yes Status: Acute (2) Previous section Current Visit: Yes Status: Acute (3) S/P section Current Visit: Yes Status: Acute Hospital Course: The patient is a 29-year-old 2 para 1001 admitted at 39 and one sevenths weeks by good dating parameters. She is admitted for repeat low transverse section and intraoperative tubal occlusion with Filshie clips. Her was uncomplicated and group B strep status is negative. On labor and delivery, she was taken the operating room where she was delivered by repeat section of a viable 8 lbs. 3 oz. baby boy with Apgars of 8 at 1 minute and 8 at 5 minutes. The patient's postoperative and course was entirely unremarkable with vital signs remaining stable and her temperature was afebrile throughout. She was deemed stable for discharge on post operative day #3 and was discharged home to follow-up in the office in 2 weeks for an incision check and 6 weeks routinely. Discharge instructions included calling for any significantly increased bleeding or foul-smelling lochia, significantly increased fever or abdominal pain, perineal complaints, breast complaints, incisional complaints, or anything else that concerned her. She was additionally instructed to have nothing in the vagina for at least 6 weeks time to include intercourse and to abstain from any heavy lifting over the same period of time. She was last instructed to do no driving until off of all pain medications or 2 weeks' time, whichever came first. She understood all of her instructions and agrees to follow up as noted above. Discharge medications included [id number] analgesic pain medications as well as a prescription for Tylenol 3, 1-2 by mouth every 6 hours when necessary pain, #20 dispensed with no refills. Maternal blood type is O+ and rubella status is immune. Discharge hemoglobin and hematocrit were 11.0 and 34.7 respectively. Procedures: #1. Repeat low transverse section #2. Intraoperative bilateral tubal occlusion with Filshie clips Patient Condition at Discharge: Stable Plan - Discharge Summary Discharge Rx Participant: Yes New Discharge Prescriptions: No Action Pnv No.95/Ferrous Fum/Folic AC [ Multivitamin Tablet] 1 each PO DAILY Ferrous Sulfate [Feosol] 325 mg PO DAILY Discharge Medication List Pnv No.95/Ferrous Fum/Folic AC [ Multivitamin Tablet] 1 each PO DAILY 07/13/18 [History] Ferrous Sulfate [Feosol] 325 mg PO DAILY 04/19/20 [History] Follow up Appointment(s)/Referral(s): Luis Ibrahim MD [STAFF PHYSICIAN] - 2 Weeks Discharge Disposition: HOME SELF-CARE
[2020-04-26] MEDS: IBUPROFEN 600 MG TAB PO PRN ×2 (04:00→08:46)
[2020-04-26 07:44] VITALS: BP 101/76; PULSE 87; RESP 16; TEMP 97.8
[2020-04-26] MEDS: SENNOSIDES-DOCUSATE SODIUM 1 EACH TAB PO SCH (08:47)
== END 2020-04-26 11:00 | disposition home or self-care (01) | DRG 785 ==
LOC: 4FBP 10:01
PROVIDERS: ADMIT Obstetrics & Gynecology; ATTEND Obstetrics & Gynecology
PROC: 0UL70CZ Occlusion of Bilateral Fallopian Tubes with Extraluminal Device, Open Approach (ICD-10-PCS; principal; 2020-04-22 12:00)
PROC: 10D00Z1 Extraction of Products of Conception, Low, Open Approach (ICD-10-PCS; principal; 2020-04-22 12:00)
DX: O34.211 Maternal care for low transverse scar from previous cesarean delivery (principal); O99.334 Smoking (tobacco) complicating childbirth; F17.200 Nicotine dependence, unspecified, uncomplicated; O99.284 Endocrine, nutritional and metabolic diseases complicating childbirth; E28.2 Polycystic ovarian syndrome; Z3A.39 39 weeks gestation of pregnancy; Z37.0 Single live birth; Z30.2 Encounter for sterilization; Z91.048 Other nonmedicinal substance allergy status; Z82.49 Family history of ischemic heart disease and other diseases of the circulatory system
CPT/HCPCS: 85025; 86850; 86900; 86901

== ENCOUNTER 2021-11-25 07:23 | Emergency (ER) | payer OTHER ==
[2021-11-25 07:34] VITALS: BP 131/80; RESP 18; TEMP 98.2
[2021-11-25 07:47] VITALS: PULSE 83
[2021-11-25] MEDS ORDERED: TOPICAL SKIN ADHESIVE 1 EACH AMP TOPICAL ONE (07:51)
[2021-11-25] MEDS ORDERED: DIPH,PERTUS(ACELL)TETVAC-LF 0.5 ML VIAL IM ONE (07:51)
--- NOTE | 2021-11-25 08:12 | ED ---
General Adult HPI - General Chief complaint: Syncope Stated complaint: syncope Time Seen by Provider: 11/25/21 07:36 Source: patient, RN notes reviewed Mode of arrival: ambulatory Limitations: no limitations - History of Present Illness Initial comments: 31-year-old female presents to the emergency room for a chief complaint of syncope. Patient states that she was at work and was standing for quite some time. She cut her finger with a knife. Patient states she was trying to get the bleeding to stop and wrap it when she started to feel lightheaded and flushed. She then passed out. Patient would also like her finger evaluated. Patient has no other complaints at this time including shortness of breath, chest pain, abdominal pain, nausea or vomiting, headache, or visual changes. - Related Data Home Medications Medication Instructions Recorded Confirmed Pnv No.95/Ferrous Fum/Folic AC 1 each PO DAILY 07/13/18 04/22/20 [ Multivitamin Tablet] Ferrous Sulfate [Feosol] 325 mg PO DAILY 04/19/20 04/22/20 Allergies Allergy/AdvReac Type Severity Reaction Status Date / Time alcohol Allergy Itching Verified 11/25/21 07:34 [From Mastisol Adhesive] gum mastic Allergy Itching Verified 11/25/21 07:34 [From Mastisol Adhesive] methyl salicylate Allergy Itching Verified 11/25/21 07:34 [From Mastisol Adhesive] storax Allergy Itching Verified 11/25/21 07:34 [From Mastisol Adhesive] Review of Systems ROS Statement: Those systems with pertinent positive or pertinent negative responses have been documented in the HPI. ROS Other: All systems not noted in ROS Statement are negative. Past Medical History Additional Past Medical History / Comment(s): PCOS History of Any Multi-Drug Resistant Organisms: None Reported Date of last positivie culture/infection: 08/18/18 MDRO Source:: ESBL URINE Past Surgical History: Section, Orthopedic Surgery Additional Past Surgical History / Comment(s): GANGLION CYST RT WRIST REMOVED. RT KNEE SCOPE Past Anesthesia/Blood Transfusion Reactions: No Reported Reaction Past Psychological History: No Psychological Hx Reported Smoking Status: Current some day smoker Past Alcohol Use History: None Reported Past Drug Use History: None Reported - Past Family History Mother Family Medical History: No Reported History Father Additional Family Medical History / Comment(s): hx of aortic valve tear - cause of General Exam Limitations: no limitations General appearance: alert, in no apparent distress Head exam: Present: atraumatic Eye exam: Present: normal appearance, PERRL, EOMI. Absent: scleral icterus, conjunctival injection ENT exam: Present: normal exam, mucous membranes moist Neck exam: Present: normal inspection, full ROM. Absent: tenderness Respiratory exam: Present: normal lung sounds bilaterally. 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 Patient is well-appearing. Suspect patient's symptoms are secondary to vasovagal reaction from her finger bleeding. EKG nonischemic, normal sinus rhythm. Exofin was applied to the wound. Tetanus updated. Patien t stable for discharge home and outpatient follow-up. Disposition Clinical Impression: Laceration, Vasovagal syncope Disposition: HOME SELF-CARE Condition: Good Instructions (If sedation given, give patient instructions): Care For Your Stitches (DC), Syncope (ED) Additional Instructions: Please follow-up with your doctor in one to 2 days. Return to the emergency room for any worsening symptoms. Is patient prescribed a controlled substance at d/c from ED?: No Referrals: Sukhwinder Fuentes DO [Primary Care Provider] - 1-2 days Time of Disposition: 08:19
== END 2021-11-25 10:02 | disposition home or self-care (01) ==
LOC: EC 07:23
DX: R55 Syncope and collapse (principal); S61.219A Laceration without foreign body of unspecified finger without damage to nail, initial encounter; F17.200 Nicotine dependence, unspecified, uncomplicated; Z23 Encounter for immunization
CPT/HCPCS: 12001; 90471; 90715; 99284